=== PATIENT | male | born 1955 | race Two or more races ===

== ENCOUNTER 2023-09-15 05:17 | Day surgery (SDC) | payer OTHER ==
[2023-09-15] MEDS: Dextrose 5%-0.45% NaCl 1,000 ML IV SCH (05:49)
[2023-09-15] MEDS ORDERED: Midazolam 1 MG/ML 2 ML SDV ONE (06:05)
[2023-09-15] MEDS ORDERED: fentaNYL 100 MCG/2 ML SDV ONE (06:05)
[2023-09-15] MEDS: fentaNYL 100 MCG/2 ML SDV IV ONE ×2 (06:21→06:22)
[2023-09-15] MEDS: Midazolam 1 MG/ML 2 ML SDV IV ONE ×6 (06:22→06:36)
[2023-09-15 09:33] VITALS: BP 139/63; PULSE 52
== END 2023-09-15 08:55 | disposition home or self-care (01) ==
LOC: DL.ENDO 05:17
PROVIDERS: ATTEND Internal Medicine Gastroenterology
DX: Z12.11 Encounter for screening for malignant neoplasm of colon (principal); K57.30 Diverticulosis of large intestine without perforation or abscess without bleeding; I10 Essential (primary) hypertension; E78.5 Hyperlipidemia, unspecified; I25.10 Atherosclerotic heart disease of native coronary artery without angina pectoris; Z95.5 Presence of coronary angioplasty implant and graft; F17.210 Nicotine dependence, cigarettes, uncomplicated; Z91.030 Bee allergy status
CPT/HCPCS: 45378; J2250; J3010; J7042